=== PATIENT | female | born 1980 | race Caucasian/White ===

== ENCOUNTER 2019-06-17 17:49 | Emergency (ER) | payer BC, OTHER ==
[~2019-06-17] VITALS: Ht 172.7 cm; Wt 76.0 kg
[2019-06-17 17:55] VITALS: BP 129/89
== END 2019-06-17 20:40 | disposition home or self-care (01) ==
LOC: ED 20:34
DX: S00.12XA Contusion of left eyelid and periocular area, initial encounter (principal); R55 Syncope and collapse; F17.200 Nicotine dependence, unspecified, uncomplicated; X58.XXXA Exposure to other specified factors, initial encounter; Y93.89 Activity, other specified; Y92.89 Other specified places as the place of occurrence of the external cause; Y99.8 Other external cause status
CPT/HCPCS: 36415; 70450; 70486; 80053; 81001; 84703; 85025; 93005; 99284

== ENCOUNTER 2019-06-19 19:02 | Emergency (ER) | payer BC, OTHER ==
[~2019-06-19] VITALS: Ht 172.7 cm; Wt 75.0 kg
[2019-06-20 01:32] VITALS: BP 121/80
== END 2019-06-20 01:34 | disposition home or self-care (01) ==
LOC: ED 06-20 01:28
DX: R55 Syncope and collapse (principal); F10.220 Alcohol dependence with intoxication, uncomplicated; F17.200 Nicotine dependence, unspecified, uncomplicated; Y90.9 Presence of alcohol in blood, level not specified
CPT/HCPCS: 36415; 80053; 80307; 84484; 85025; 93005; 96372; 99284; J1885; 99283